=== PATIENT | female | born 1990 | race Caucasian/White ===

== ENCOUNTER 2019-03-17 08:05 | Emergency (ER) | payer SELFPAY ==
[~2019-03-17] VITALS: Ht 165.1 cm; Wt 68.0 kg
[2019-03-17 08:05] VITALS: BP 132/76
--- NOTE | 2019-03-17 08:05 | NUR ---
Jo Ann frost in EDM - 03/17/19 at 1859 by [facility] ED Nurse Note: sitter at bedside
--- NOTE | 2019-03-17 08:06 | NUR ---
ED Nurse Note: Patient brought in by [facility] c/o ETOH. patient is placed [facility] 5150 hold, patient denies any suicidal ideation or plan to harm others. patient was brought into ED accompanied by EBONI due to her trying to break in her ex boyfriends house. patient is alert and oriented x4, IV started on right forearm 22 gauge.
[2019-03-17] MEDS ORDERED: VALIUM2 MG ORAL (08:13)
[2019-03-17] MEDS ORDERED: XANAX0.25 MG ORAL (08:13)
[2019-03-17] MEDS ORDERED: Thiamine HCl 100 MG in D5W 55 ML IVPB ONE (08:15)
--- NOTE | 2019-03-17 08:18 | Emergency Room Report ---
History of Present Illness General Chief Complaint: Alcohol Intoxication Source: Patient, EMS (Jay Hardin MD) Present Illness HPI Patient is 28-year-old female presents after increased anxiety. She reports having recently drank half a bottle of Sherry. Patient denies any suicidal thoughts thoughts. She was placed on hold by [employer]. Patient states that she had been feeling anxious. She states that she takes Ativan and Xanax regularly.Patient reportedly had been making threats to attack her ex-boyfriend and burn down his building per [employer]. (Jay Hardin MD) Allergies: Coded Allergies: No Known Allergies (Unverified , 03/17/19) Patient History Past Medical History: see triage record Last Menstrual Period: unknown Reviewed Nursing Documentation: PMH: Agreed; PSxH: Agreed (Jay Hardin MD) Nursing Documentation-PMH Past Medical History: No Stated History (Jay Hardin MD) Review of Systems All Other Systems: negative except mentioned in HPI (Jay Hardin MD) Physical Exam Vital Signs Date Time Temp Pulse Resp B/P (MAP) Pulse Ox O2 Delivery O2 Flow Rate FiO2 03/17/19 08:04 98.4 82 16 112/75 (87) 98 Room Air Sp02 EP Interpretation: reviewed, normal General Appearance: normal inspection, well appearing, no apparent distress, alert, GCS 15 Head: atraumatic ENT: normal ENT inspection, hearing grossly normal, normal voice Neck: normal inspection, full range of motion, supple, no bony tend Respiratory: normal inspection, lungs clear, normal breath sounds, no respiratory distress, no retraction, no wheezing Cardiovascular #1: regular rate, rhythm, no edema Gastrointestinal: normal inspection, normal bowel sounds, non tender, soft, no guarding, no hernia Genitourinary: no CVA tenderness Musculoskeletal: normal inspection, back normal, normal range of motion Neurologic: normal inspection, alert, oriented x3, responsive, sap portal architect III-XII nml as tested, speech normal Psychiatric: normal inspection, judgement/insight normal, mood/affect normal (Jay Hardin MD) Medical Decision Making Diagnostic Impression: Primary Impression: Acute alcoholic intoxication ER Course Patient presented for anxiety. Differential diagnoses include alcohol intoxication substance abuse, psychosis, bipolar disorder, depression, malingering. Because of complexity of patient's case laboratory tests and imaging studies were ordered.Patient was placed on a 5150 hold by [employer]. She appeared to be somewhat intoxicated. Patient reportedly had a prior history of alcohol abuse. Apparently had relapse.Patient's laboratory testing was unremarkable other than elevated blood alcohol level and patient does appear to be intoxicated. She was given Ativan due to anxiety. She was also given Tylenol for chronic neck pain. Patient will be medically cleared once more sober. Patient is currently on a 5150 hold and will be transferred for psychiatric evaluation and placement. Labs Test 03/17/19 08:30 03/17/19 08:36 White Blood Count 6.1 K/UL (4.8-10.8) Red Blood Count 5.05 M/UL (4.20-5.40) Hemoglobin 14.7 G/DL (12.0-16.0) Hematocrit 44.9 % (37.0-47.0) Mean Corpuscular Volume 89 FL (80-99) Mean Corpuscular Hemoglobin 29.1 PG (27.0-31.0) Mean Corpuscular Hemoglobin Concent 32.8 G/DL (32.0-36.0) Red Cell Distribution Width 11.9 % (11.6-14.8) Platelet Count 307 K/UL (150-450) Mean Platelet Volume 5.5 FL (6.5-10.1) Neutrophils (%) (Auto) 65.3 % (45.0-75.0) Lymphocytes (%) (Auto) 27.4 % (20.0-45.0) Monocytes (%) (Auto) 5.5 % (1.0-10.0) Eosinophils (%) (Auto) 0.7 % (0.0-3.0) Basophils (%) (Auto) 1.1 % (0.0-2.0) Sodium Level 146 MMOL/L (136-145) Potassium Level 3.7 MMOL/L (3.5-5.1) Chloride Level 109 MMOL/L (98-107) Carbon Dioxide Level 27 MMOL/L (21-32) Anion Gap 10 mmol/L (5-15) Glucose Level 83 MG/DL (74-106) Total Bilirubin 0.3 MG/DL (0.2-1.0) Aspartate Amino Transf (AST/SGOT) 27 U/L (15-37) Alanine Aminotransferase (ALT/SGPT) 26 U/L (12-78) Alkaline Phosphatase 57 U/L (46-116) Total Protein 7.5 G/DL (6.4-8.2) Albumin 4.3 G/DL (3.4-5.0) Globulin 3.2 g/dL Albumin/Globulin Ratio 1.3 (1.0-2.7) Salicylates Level 3.1 ug/mL (2.8-20) Acetaminophen Level < 2 MCG/ML (10-30) Serum Alcohol 242 mg/dL Urine HCG, Qualitative Negative (NEGATIVE) Urine Opiates Screen Negative (NEGATIVE) Urine Barbiturates Screen Negative (NEGATIVE) Phencyclidine (PCP) Screen Negative (NEGATIVE) Urine Amphetamines Screen Negative (NEGATIVE) Urine Benzodiazepines Screen Negative (NEGATIVE) Urine Cocaine Screen Negative (NEGATIVE) Urine Marijuana (THC) Screen Negative (NEGATIVE) (Jay Hardin MD) Last Vital Signs Date Time Temp Pulse Resp B/P (MAP) Pulse Ox O2 Delivery O2 Flow Rate FiO2 03/17/19 08:04 98.4 82 16 112/75 (87) 98 Room Air Status: improved (Jay Hardin MD) Reevaluation Time: 15:47 Reevaluation Impression Assumed care of the patient from Dr. Hardin approximately 3 PM. Briefly, this a 28-year-old female who presented for alcohol intoxication and threatening remarks both against others and threatening to hurt herself. She is on 5150 hold by [employer]. Lab work shows alcohol intoxication which is downtrending and otherwise blood work is within normal limits. She was awaiting psychiatric evaluation which is now been completed by Dr. Krishnamurthy. The hold has been lifted. The patient is clinically sober, ambulated without difficulty, mentating appropriately and will be discharged home. Her counselor from has arrived to take custody of her and he states he can set up a place for her to stay tonight until she can go to a rehabilitation facility in the morning which is already been arranged by him. The patient understands and agrees with this plan. Will include outpatient rehab places in her discharge paperwork as well. She will be discharged. (aTe Multani MD) Disposition: HOME, SELF-CARE Condition: Stable Jay Hardin MD Mar 17, 2019 08:18 Tae Multani MD Mar 17, 2019 15:48
[2019-03-17] MEDS ORDERED: LORazepam Inj 2mg/ml 1ml IV ONE ×2 (09:00→09:15)
[2019-03-17 09:23] LABS: BASOPHILS % (AUTO) 1.1 % (0.0-2.0); EOSINOPHILS % (AUTO) 0.7 % (0.0-3.0); HEMATOCRIT 44.9 % (37.0-47.0); HEMOGLOBIN 14.7 G/DL (12.0-16.0); LYMPHOCYTES % (AUTO) 27.4 % (20.0-45.0); MEAN CORPUSCULAR VOLUME 89 FL (80-99); MONOCYTES % (AUTO) 5.5 % (1.0-10.0); NEUTROPHILS % (AUTO) 65.3 % (45.0-75.0); PLATELET COUNT 307 K/UL (150-450); RED BLOOD COUNT 5.05 M/UL (4.20-5.40); RED CELL DISTRIBUTION WIDTH 11.9 % (11.6-14.8); WHITE BLOOD COUNT 6.1 K/UL (4.8-10.8)
[2019-03-17 09:40] LABS: ALANINE AMINOTRANSFERASE 26 U/L (12-78); ALBUMIN 4.3 G/DL (3.4-5.0); ALBUMIN/GLOBULIN RATIO 1.3 (1.0-2.7); ALKALINE PHOSPHATASE 57 U/L (46-116); ANION GAP 10 mmol/L (5-15); ASPARTATE AMINO TRANSFERASE 27 U/L (15-37); BILIRUBIN,TOTAL 0.3 MG/DL (0.2-1.0); CARBON DIOXIDE 27 MMOL/L (21-32); CHLORIDE 109 MMOL/L (98-107); POTASSIUM 3.7 MMOL/L (3.5-5.1); SODIUM 146 MMOL/L (136-145)
[2019-03-17 10:01] LABS: BLOOD UREA NITROGEN 6 mg/dL (7-18); CALCIUM 8.5 MG/DL (8.5-10.1); CREATININE 0.6 MG/DL (0.55-1.30)
--- NOTE | 2019-03-17 12:30 | NUR ---
ED Nurse Note: Patient repeatedly is asking for ativan.
[2019-03-17] MEDS ORDERED: Acetaminophen 500mg (ES) tab ORAL ONE (12:45)
[2019-03-17] MEDS ORDERED: LORazepam 1mg tab ORAL ONE ×3 (12:45→14:30)
--- NOTE | 2019-03-17 15:52 | NUR ---
ED Nurse Note: Dr. Krishnamurthy lifted the hold.
--- NOTE | 2019-03-17 15:59 | NUR ---
ED Nurse Note: all belongings were given back to the patient
[2019-03-17 16:00] VITALS: BP 140/80
--- NOTE | 2019-03-17 16:00 | NUR ---
ER DISCHARGE NOTE: Patient is cleared to be discharged per ERMD, pt is aox4, on room air, with stable vital signs. pt was given dc instructions, pt was able to verbalize understanding, pt id band and iv site removed without complications. pt is able to ambulate with steady gait. pt took all belongings. Patient is leaving the ED accompanied by friend
--- NOTE | 2019-03-17 16:00 | NUR ---
ER DISCHARGE NOTE: Patient is cleared to be discharged per ERMD, pt is aox4, on room air, with stable vital signs. pt was given dc and prescription instructions, pt was able to verbalize understanding, pt id band and iv site removed without complications. pt is able to ambulate with steady gait. pt took all belongings. Patient is leaving the ED accompanied by friend
--- NOTE | 2019-03-18 11:55 | Consultation ---
DATE OF CONSULTATION: 03/17/2019 HISTORY OF PRESENT ILLNESS: The patient is a 28-year-old white female with a history of alcohol dependence. She has been having history of alcoholism for several years. She is here from [place] for alcohol dependence treatment. The patient recently went through to relapsed from alcohol. The patient was brought in today for alcohol intoxication. The patient was placed on a 5150, comments to her friend about wanting to . The patient was admitted here in the ER, has been calm, cooperative, no behavior issues noted. The patient is not endorsing any anxiety and requesting to be back to her sober living. The patient denies taking any psychotropic medication. PAST PSYCHIATRIC HISTORY: Significant for anxiety, depression. Denies any suicidal attempts in the past. Denies any past psychiatric hospitalization. PAST MEDICAL HISTORY: Nonsignificant. ALLERGIES: No known drug allergies. SUBSTANCE ABUSE HISTORY: Alcohol dependence. MENTAL STATUS EXAMINATION: The patient is alert and oriented times self, place, situation, and date. Mood is neutral. Affect is full range. Congruent with mood. Thought process is linear and goal oriented. Thought content, there is no suicidal or homicidal ideation. No delusions. No auditory or visual hallucinations. Memory, concentration, and attention is intact. Insight and judgment is fair. ASSESSMENT: Sula I Alcohol dependence. Anxiety disorder. Sula II Deferred. Sula III None. Sula IV Moderate Sula V 50 PLAN: 1. The patient's 5150 will be discontinued. 2. The patient will be discharged to a lower level. Vasu Krishnamurthy M.D. DR: Marino JOB#: [id number] CC: AGUSTO
== END 2019-03-17 16:00 | disposition home or self-care (01) ==
LOC: EDBD 08:05 → EMR 09:15
DX: F10.129 Alcohol abuse with intoxication, unspecified (principal); F41.9 Anxiety disorder, unspecified; Y90.8 Blood alcohol level of 240 mg/100 ml or more
CPT/HCPCS: 36415; 80053; 80307; 81025; 84443; 85025; 96365; 96375; 99285; G0480